=== PATIENT | female | born 1950 | race Caucasian/White ===

== ENCOUNTER 2024-06-12 14:29 | Observation (INO) ==
--- NOTE | 2024-06-12 14:37 | Emergency Department Note ---
HPI - General Adult General Chief complaint: Abdominal Pain Stated complaint: ABDOMINAL PAIN Time Seen by Provider: 06/12/24 14:31 Source: patient and EMS Mode of arrival: ambulance Limitations: no limitations History of Present Illness HPI narrative: This is a 73 year old female patient that presents to the ER with c/o per EMS patient had a syncopal episode in the bathroom today with abdominal pain with N/D. Patient denies any chest pain, back pain,SOB, fever, or chills. Patient denies any vomiting. patient states everything started this morning. Patient was hypotensive upon arrival to ER Onset (ago): hour(s) (3) Location: Reports abdomen Radiation: Reports non-radiation Severity: mild Quality: Reports aching and constant Pain Consistency: Reports constant Relieving factors: Reports none Exacerbating factors: Reports none Associated symptoms: Reports nausea/vomiting (nausea) Treatments prior to arrival: Reports none Related Data Allergies Allergy/AdvReac Type Severity Reaction Status Date / Time No Known Drug Allergies Allergy Verified 06/12/24 14:50 Review of Systems Status of ROS 10 or more systems reviewed and unremark able except as noted in history and below Constitutional Denies: fever, chills, change in weight, fatigue, malaise or night sweats Eyes Denies: change in vision, blurry vision, blind spots, light sensitivity or eye discomfort Ears, nose, mouth, and throat Denies: throat pain, neck pain, throat swelling, difficulty swallowing, hoarseness or mouth pain Cardiovascular Denies: chest pain, palpitations, edema, swelling of feet/ankles, lightheadedness or shortness of breath with exertion Respiratory Denies: shortness of breath, cough, wheezing, stridor, pain on inspiration or change in phlegm color Gastrointestinal Reports: abdominal pain, nausea and diarrhea; Denies: vomiting, coffee grounds in vomit, heartburn or constipation Genitourinary Denies: painful urination, urinary frequency, urinary urgency, urinary incontinence or blood in urine Musculoskeletal Denies: back pain, neck pain, extremity pain, extremity swelling, joint pain, limited range of motion or joint swelling Integumentary/Breast Denies: rash, itching, redness, skin pain, skin tenderness or skin swelling Neurological Reports: other (syncope); Denies: headache, numbness in extremities, weakness in extremities, lack of coordination or dizziness Psychiatric Denies: anxiety, mood swings, panic attacks, change in sleep pattern or hopelessness Endocrine Denies: excessive urination, excessive thirst, fatigue, cold intolerance or excessive sweating Hematologic/Lymphatic Denies: easy bruising, easy bleeding or enlarged lymph nodes Allergic/Immunologic Denies: hives, throat swelling, tongue swelling, facial swelling or wheezing [facility] Medical History Fibrocystic breast Hx of ovarian cancer HTN (hypertension) Surgical History History of oophorectomy Social History Smoking status: never smoker Problems where you live: no known problems Feel stressed/tense/nervous/anxious/difficulty sleeping: only a little Exam Constitutional: normal general appearance and no apparent distress Vital Signs - 24 hr 06/12/24 14:30 06/12/24 15:00 06/12/24 15:30 Temperature 97 F L Pulse Rate 79 91 H 94 H Respiratory Rate 16 18 14 Blood Pressure 81/48 81/49 64/42 Pulse Oximetry 93 L 94 L 95 Oxygen Delivery Me thod Room Air Nasal Cannula Nasal Cannula Oxygen Flow Rate 2 2 06/12/24 15:50 Temperature Pulse Rate 74 Respiratory Rate 14 Blood Pressure 101/57 Pulse Oximetry 95 Oxygen Delivery Me thod Nasal Cannula Oxygen Flow Rate 2 HENMT: normocephalic, head/scalp atraumatic, hearing grossly normal bilaterally, external ears normal, nasal mucous membranes normal, external nose normal, oral mucous membranes normal and oropharynx normal Eyes: PERRL, EOMs intact bilaterally, conjunctivae normal and no scleral icterus Neck/C-Spine: visual inspection normal and trachea midline Lymph: no lymphadenopathy noted Chest: inspection of chest normal Respiratory: breath sounds equal bilaterally, normal respiratory effort, clear to auscultation bilaterally, no wheezes, no rales, no retractions and no use of accessory muscles Cardiovascular: normal heart rate noted, regular rhythm noted, no gallop, no rub, no murmur, no JVD, no clicks and peripheral pulses 2+ throughout Gastrointestinal: abdomen normal to inspection, abdomen soft to palpation, ten ramona to palpation (diffuse tenderness), nontender to percussion, nondistended, normoactive bowel sounds, no hepatosplenomegaly, no masses, no pulsatile mass, no ascites and no hernia Genitourinary: no CVA tenderness Back/Pelvis: spine normal to inspection Extremities: normal to inspection, normal to palpation, no tenderness, full ROM, no joint enlargement and no deformity Neurology: national account executive II-XII intact, no movement abnormality noted, no focal motor deficit noted, no sensory deficits noted, speech normal, coordination normal, no pronator drift noted, no fasciculations noted and GCS normal Psychiatry: mental status grossly normal, oriented x3, thought process normal and cooperative Skin: skin color normal Course Course Hospital Course: 1735: due to syncopal event and ongoing diarrhea and abdominal pain will admit patient to the hospital for further evaluation and treatment. BP improved. CXR: negative Vital Signs Vital signs: Vital Signs Temperature 97 F L 06/12/24 14:30 Pulse Rate 79 06/12/24 14:30 Respiratory Rate 16 06/12/24 14:30 Blood Pressure 81/48 06/12/24 14:30 Pulse Oximetry 93 L 06/12/24 14:30 Oxygen Delivery Method Room Air 06/12/24 14:30 Temperature 97 F L 06/12/24 14:30 Pulse Rate 74 06/12/24 15:50 Respiratory Rate 14 06/12/24 15:50 Blood Pressure 101/57 06/12/24 15:50 Pulse Oximetry 95 06/12/24 15:50 Oxygen Delivery Method Nasal Cannula 06/12/24 15:50 Oxygen Flow Rate 2 06/12/24 15:50 Medical Decision Making Differential Diagnosis Differential Diagnosis: viral illness Medical Records Medical records reviewed: Yes I reviewed the patient's medical records Lab Data Lab results reviewed: Yes I reviewed the patient's lab results Labs: Lab Results 06/12/24 Range/Units 15:15 WBC 15.1 H (4.3-9.3) K/uL RBC 5.6 H (4.00-5.50) M/uL Hgb 16.7 H (12.5-15.8) gm/dL Hct 50.2 H (35.9-46.7) % MCV 88.9 (81.0-93.7) fl MCH 29.6 (27.6-32.2) pg MCHC 33.2 (33.1-35.3) g/dl RDW 14.4 H (11.4-14.2) % Plt Count 297 (152-353) K/uL MPV 7.7 (6.9-10.8) fl Gran % 75.2 H (47.8-71.3) % Lymph % (Auto) 17.0 L (20.0-43.0) % Wright % (Auto) 5.4 (3.6-9.8) % Eos % (Auto) 1.8 (0.4-2.8) % Baso % (Auto) 0.6 (0.1-0.85) Lymph # (Auto) 2.6 (1.1-3.1) Wright # (Auto) 0.8 L (1.1-3.1) Eos # (Auto) 0.3 H (0.0-0.2) Baso # (Auto) 0.1 (0.0-0.1) Absolute Gran (auto) 11.3 H (2.3-6.0) Sodium 137 (136-145) mmol/L Potassium 4.0 (3.6-5.2) mmol/L Chloride 101.0 (98-107) mmol/L Carbon Dioxide 20 L (21-32) mmol/L Anion Gap 16.0 H (4-14) mEq/L BUN 16 (7-18) mg/dL Creatinine 1.2 (0.6-1.3) mg/dL Estimated GFR 47.8 (>59.9) Glucose 139 H (70-110) mg/dL Calcium 9.0 (8.5-10.1) mg/dL Total Bilirubin 0.69 (0.0-1.0) mg/dL AST 28 (15-37) U/L ALT 13 L (30-65) U/L Alkaline Phosphatase 118 (50-136) U/L Troponin I High Sens 10.00 (4.0-60.4) ng/L Total Protein 7.1 (6.4-8.2) g/dL Albumin 3.0 L (3.4-5.0) g/dL Imaging Data CT scan - abdomen: Attestation: I have reviewed the pertinent imaging results. Discharge Plan Discharge Patient Disposition: Admitted As Observation Condition: Stable Chief Complaint: Abdominal Pain Clinical Impression: Acute hypotension, Syncope, Intractable diarrhea, Intractable nausea Print Language: Greek Referrals: Provider,NO PCP [Primary Care Provider] - Time of Disposition: 17:39
[2024-06-12] MEDS: ONDANSETRON HCL/PF 4 MG/2 ML VIAL INJ STA (14:44)
[2024-06-12] MEDS: 0.9 % SODIUM CHLORIDE 1000 ML 1,000 ML IV STA ×2 (14:44→15:45)
[2024-06-12 15:36] LABS: Basophils #(Absolute) Auto 0.1 (0.0-0.1); Basophils%(Percent) Auto 0.6 (0.1-0.85); Eosinophils#(Absolute)Auto 0.3 (0.0-0.2); Eosinophils%(Percent) Auto 1.8 % (0.4-2.8); Granulocytes % - Auto 75.2 % (47.8-71.3); Granulocytes#(Absolute)- Auto 11.3 (2.3-6.0); Hematocrit 50.2 % (35.9-46.7); Mean Corpuscular Volume 88.9 fl (81.0-93.7); Monocytes #(Absolute)- Auto 0.8 (1.1-3.1); Monocytes %(Percent)- Auto 5.4 % (3.6-9.8); Platelet Count 297 K/uL (152-353); White Blood Count 15.1 K/uL (4.3-9.3)
[2024-06-12] MEDS ORDERED: ONDANSETRON HCL/PF 4 MG/2 ML VIAL INJ PRN (18:23)
[2024-06-12] MEDS ORDERED: MAGNESIUM, ALUMINUM HYDROXIDE 30 ML ORAL.SUSP PO PRN (18:23)
[2024-06-12] MEDS ORDERED: ACETAMINOPHEN 500 MG TABLET PO PRN (18:23)
[2024-06-12] MEDS: 0.9 % SODIUM CHLORIDE 1000 ML 1,000 ML IV SCH (18:30)
[2024-06-13 07:31] VITALS: RESP 19
[2024-06-13 10:28] LABS: Basophils%(Percent) Auto 0.1 (0.1-0.85); Eosinophils%(Percent) Auto 0.3 % (0.4-2.8); Granulocytes % - Auto 74.9 % (47.8-71.3); Hematocrit 36.1 % (35.9-46.7); Mean Corpuscular Volume 88.9 fl (81.0-93.7); Monocytes %(Percent)- Auto 8.5 % (3.6-9.8); Platelet Count 285 K/uL (152-353)
[2024-06-13 10:53] LABS: Potassium 3.8 mmol/L (3.6-5.2)
[2024-06-13] MEDS: PANTOPRAZOLE SODIUM 40 MG TABLET.DR PO SCH (11:53)
[2024-06-13] MEDS: PARoxetine HCL 20 MG TABLET PO SCH (11:53)
[2024-06-13 12:03] VITALS: BP 126/50; PULSE 80; TEMP 98.6
[2024-06-13 13:17] LABS: Urine Appearance HAZY (CLEAR); Urine Color DARK YELLOW (STRAW/YELL.)
[2024-06-13 13:18] LABS: Urine Blood 2+ (NEG - TRACE); Urine Urobilinogen Normal (NORMAL)
[2024-06-13] MEDS: LOPERAMIDE HCL 2 MG CAPSULE PO PRN (14:15)
[2024-06-13] MEDS: CEFTRIAXONE SODIUM 1 GM in 0.9 % SODIUM CHLORIDE MB+ 50 ML IV SCH (14:48)
--- NOTE | 2024-06-13 16:32 | Short Stay Summary ---
H&P: HPI History of Present Illness Chief complaint: SYNCOPE,HYPOTENSION,INTRACTABLE DIARRHEA Narrative: This is a 73 year old female patient that presented to the ER with c/o, per EMS, patient had a syncopal episode in the bathroom today with abdominal pain with N/D. Patient denies any chest pain, back pain,SOB, fever, or chills. Patient denies any vomiting. Patient states everything started this morning. Patient was hypotensive upon arrival to ER, 64/42. Patient admitted to med/surg for observation and treatment. Review of Systems Status of ROS 10 or more systems reviewed and unremark able except as noted in history and below Constitutional Denies: fever, chills, change in weight, fatigue, malaise or night sweats Eyes Denies: change in vision, blurry vision, blind spots, light sensitivity or eye discomfort Ears, nose, mouth, and throat Denies: throat pain, neck pain, throat swelling, difficulty swallowing, hoarseness or mouth pain Cardiovascular Denies: chest pain, palpitations, edema, swelling of feet/ankles, lightheadedness or shortness of breath with exertion Respiratory Denies: shortness of breath, cough, wheezing, stridor, pain on inspiration or change in phlegm color Gastrointestinal Reports: abdominal pain, nausea and diarrhea; Denies: vomiting, coffee grounds in vomit, heartburn, constipation or difficulty swallowing Genitourinary Denies: painful urination, urinary frequency, urinary urgency, urinary incontinence or blood in urine Musculoskeletal Denies: back pain, neck pain, extremity pain, extremity swelling, joint pain, limited range of motion or joint swelling Integumentary/Breast Denies: rash, itching, redness, skin pain, skin tenderness or skin swelling Neurological Reports: other (syncope); Denies: headache, numbness in extremities, weakness in extremities, lack of coordination or dizziness Psychiatric Denies: anxiety, mood swings, panic attacks, change in sleep pat tern or hopelessness Endocrine Denies: excessive urination, excessive thirst, fatigue, cold intolerance or excessive sweating Hematologic/Lymphatic Denies: easy bruising, easy bleeding or enlarged lymph nodes Allergic/Immunologic Denies: hives, throat swelling, tongue swelling, facial swelling or wheezing [facility] Medical History (Updated 06/13/24 @ 15:48 by CHATO Manuel) Intermittent diarrhea Syncope and collapse Fibrocystic breast Hx of ovarian cancer HTN (hypertension) Surgical History History of oophorectomy Social History Smoking status: never smoker Problems where you live: no known problems Highest level of school completed/degree received: high school Feel stressed/tense/nervous/anxious/difficulty sleeping: only a little Meds Home Medications and Allergies Home Medications Medication Instructions Recorded Confirmed Type cephalexin 500 mg capsule 500 mg PO TID uti #9 caps 06/13/24 Rx lisinopril 20 mg tablet 20 mg PO DAILY htn #30 tabs 06/13/24 Rx lovastatin 20 mg tablet 20 mg PO .hs 06/13/24 06/13/24 History pantoprazole 40 mg tablet,delayed 40 mg PO DAILY 06/13/24 06/13/24 History release paroxetine HCl 40 mg tablet 40 mg PO DAILY 06/13/24 06/13/24 History Allergies Allergy/AdvReac Type Severity Reaction Status Date / Time No Known Drug Allergies Allergy Verified 06/12/24 14:50 Exam Exam: Patient is very adamant about going home today. Constitutional: abnormal general appearance (chronically ill), no apparent distress, abnormal body habitus (obese), limitations noted (physical limitations) and alert Vital Signs - 24 hr 06/12/24 15:50 06/12/24 16:00 06/12/24 16:30 Temperature Pulse Rate 74 79 80 Pulse Rate [Bilate ral] Respiratory Rate 14 13 14 Blood Pressure 101/57 101/57 106/61 Blood Pressure [Le ft Radial Artery] Pulse Oximetry 95 94 L 96 Oxygen Delivery Me thod Nasal Cannula Room Air Room Air Oxygen Flow Rate 2 06/12/24 17:30 06/12/24 18:01 06/12/24 18:17 Temperature Pulse Rate 76 81 81 Pulse Rate [Bilate ral] Respiratory Rate 16 16 16 Blood Pressure 119/61 112/63 112/63 Blood Pressure [Le ft Radial Artery] Pulse Oximetry 99 92 L 95 Oxygen Delivery Me thod Room Air Room Air Oxygen Flow Rate 06/12/24 19:26 06/12/24 23:32 06/13/24 04:00 Temperature 97.8 F 98.3 F 98.8 F Pulse Rate Pulse Rate [Bilate ral] 82 84 73 Respiratory Rate 16 18 17 Blood Pressure Blood Pressure [Le ft Radial Artery] 127/68 131/61 109/45 Pulse Oximetry 95 94 L 91 L Oxygen Delivery Me thod Room Air Room Air Room Air Oxygen Flow Rate 06/13/24 07:30 06/13/24 07:35 06/13/24 12:00 Temperature 98.1 F 98.1 F 98.6 F Pulse Rate Pulse Rate [Bilate ral] 84 84 80 Respiratory Rate 19 19 19 Blood Pressure Blood Pressure [Le ft Radial Artery] 140/62 140/62 126/50 Pulse Oximetry 96 96 97 Oxygen Delivery Me thod Room Air Room Air Room Air Oxygen Flow Rate HENMT: normocephalic, head/scalp atraumatic, hearing grossly normal bilaterally, external ears normal, nasal mucous membranes normal, external nose normal, oral mucous membranes normal and oropharynx normal Eyes: PERRL, EOMs intact bilaterally, conjunctivae normal and no scleral icterus Neck/C-Spine: visual inspection normal and trachea midline Lymph: no lymphadenopathy noted Chest: inspection of chest normal Respiratory: breath sounds equal bilaterally, normal respiratory effort, clear to auscultation bilaterally, no wheezes, no rales, no retractions and no use of accessory muscles Cardiovascular: normal heart rate noted, regular rhythm noted, no gallop, no rub, no murmur, no JVD, no clicks and peripheral pulses 2+ throughout Gastrointestinal: abdomen normal to inspection, abdomen soft to palpation, tender to palpation (diffuse tenderness), nontender to percussion, nondistended, normoactive bowel sounds, no hepatosplenomegaly, no masses, no pulsatile mass, no ascites and no hernia Genitourinary: no CVA tenderness Back/Pelvis: spine normal to inspection Extremities: normal to inspection, normal to palpation, no tenderness, full ROM, no joint enlargement and no deformity 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, no movement abnormality noted, no focal motor deficit noted, no sensory deficits noted, speech normal, coordination normal, no pronator drift noted, no fasciculations noted and GCS normal Psychiatry: mental status grossly normal, oriented x3, thought process normal and cooperative Skin: skin color normal Assessment and Plan Assessment and Plan (1) Syncope and collapse: Code(s): R55 - Syncope and collapse (2) HTN (hypertension): Qualifiers: Hypertension type: primary hypertension Qualified Code(s): I10 - Essential (primary) hypertension Code(s): I10 - Essential (primary) hypertension (3) Thrombocytosis: Code(s): D75.839 - Thrombocytosis, unspecified (4) UTI (urinary tract infection): Qualifiers: Urinary tract infection type: site unspecified Hematuria presence: with hematuria Qualified Code(s): N39.0 - Urinary tract infection, site not specified; R31.9 - Hematuria, unspecified Code(s): N39.0 - Urinary tract infection, site not specified (5) Intermittent diarrhea: Code(s): R19.7 - Diarrhea, unspecified (6) Dehydration: Code(s): E86.0 - Dehydration (7) Frequent falls: Code(s): R29.6 - Repeated falls Plan Sodium Chloride 1,000 mls @ 150 mls/hr IV CONT Pantoprazole Sodium 40 mg PO DAILY Paroxetine Hcl 40 mg PO DAILY Ceftriaxone Sodium 1 gm in Sodium Chloride 50 mls @ 100 mls/hr IV Q12H Acetaminophen 500 mg PO Q6H PRN Magnesium Hydroxide 30 ml PO DAILY PRN Ondansetron Hcl 4 mg INJ Q6H PRN Loperamide Hcl 2 mg PO Q6H PRN Provider and Physical Therapy recommend short term in-patient physical therapy, patient declines at this time. Patient is signing AMA form accepting acknowledgement of risk. Results Labs Labs: CBC WBC 12.0 K/uL (4.3-9.3) H 06/13/24 10:20 RBC 4.1 M/uL (4.00-5.50) 06/13/24 10:20 Hgb 11.9 gm/dL (12.5-15.8) L 06/13/24 10:20 Hct 36.1 % (35.9-46.7) 06/13/24 10:20 MCV 88.9 fl (81.0-93.7) 06/13/24 10:20 MCH 29.2 pg (27.6-32.2) 06/13/24 10:20 MCHC 32.8 g/dl (33.1-35.3) L 06/13/24 10:20 RDW 14.2 % (11.4-14.2) 06/13/24 10:20 Plt Count 285 K/uL (152-353) 06/13/24 10:20 MPV 7.3 fl (6.9-10.8) 06/13/24 10:20 Gran % 74.9 % (47.8-71.3) H 06/13/24 10:20 Lymph % (Auto) 16.2 % (20.0-43.0) L 06/13/24 10:20 [place] % (Auto) 8.5 % (3.6-9.8) 06/13/24 10:20 Eos % (Auto) 0.3 % (0.4-2.8) L 06/13/24 10:20 Baso % (Auto) 0.1 (0.1-0.85) 06/13/24 10:20 Lymph # (Auto) 1.9 (1.1-3.1) 06/13/24 10:20 [place] # (Auto) 1.0 (1.1-3.1) L 06/13/24 10:20 Eos # (Auto) 0.0 (0.0-0.2) 06/13/24 10:20 Baso # (Auto) 0.0 (0.0-0.1) 06/13/24 10:20 Absolute Gran (auto) 9.0 (2.3-6.0) H 06/13/24 10:20 BMP Sodium 143 mmol/L (136-145) 06/13/24 10:30 Potassium 3.8 mmol/L (3.6-5.2) 06/13/24 10:30 Chloride 109.0 mmol/L (98-107) H 06/13/24 10:30 Carbon Dioxide 24 mmol/L (21-32) 06/13/24 10:30 Anion Gap 10.0 mEq/L (4-14) 06/13/24 10:30 BUN 16 mg/dL (7-18) 06/13/24 10:30 Creatinine 1.0 mg/dL (0.6-1.3) 06/13/24 10:30 Estimated GFR 59.5 (>59.9) 06/13/24 10:30 Glucose 97 mg/dL (70-110) 06/13/24 10:30 Calcium 8.0 mg/dL (8.5-10.1) L 06/13/24 10:30 Phosphorus 2.3 mg/dL (2.5-4.9) L 06/13/24 10:30 Magnesium 2.0 mg/dL (1.8-2.4) 06/13/24 10:30 Total Bilirubin 0.24 mg/dL (0.0-1.0) 06/13/24 10:30 AST 18 U/L (15-37) 06/13/24 10:30 ALT 16 U/L (30-65) L 06/13/24 10:30 Alkaline Phosphatase 78 U/L (50-136) 06/13/24 10:30 Total Protein 5.7 g/dL (6.4-8.2) L 06/13/24 10:30 Albumin 2.5 g/dL (3.4-5.0) L 06/13/24 10:30 Cardiac Enzymes Troponin I High Sens 10.00 ng/L (4.0-60.4) 06/12/24 15:15 Liver Function Total Bilirubin 0.24 mg/dL (0.0-1.0) 06/13/24 10:30 AST 18 U/L (15-37) 06/13/24 10:30 ALT 16 U/L (30-65) L 06/13/24 10:30 Alkaline Phosphatase 78 U/L (50-136) 06/13/24 10:30 Total Protein 5.7 g/dL (6.4-8.2) L 06/13/24 10:30 Albumin 2.5 g/dL (3.4-5.0) L 06/13/24 10:30 Urine Urine Color Dark yellow (STRAW/YELL.) 06/13/24 12:35 Urine Appearance Hazy (CLEAR) 06/13/24 12:35 Ur Specific [place] 1.020 (1.001-1.035) 06/13/24 12:35 Urine Protein Negative (NEGATIVE) 06/13/24 12:35 Urine Glucose (UA) Normal (NORMAL) 06/13/24 12:35 Urine Ketones Negative (NEGATIVE) 06/13/24 12:35 Urine Occult Blood 2+ (NEG - TRACE) 06/13/24 12:35 Urine Nitrite Negative (NEGATIVE) 06/13/24 12:35 Urine Bilirubin Negative (NEGATIVE) 06/13/24 12:35 Urine Urobilinogen Normal (NORMAL) 06/13/24 12:35 Ur Leukocyte Esterase Positive (NEGATIVE) 06/13/24 12:35 Imaging Imaging ordered: Chest x-ray, CT scan - abdomen, CT scan - head and other (Hip/Pelvis X-Ray; Ribs X-Ray) Radiologist's impression: Portable chest Date of Service: 06/12/24 HISTORY: Chest pain COMPARISON: 11/10/2023 FINDINGS: Heart size is normal. Edith are normal. Lungs are well inflated. There is a small infiltrate present in the retrocardiac area of the left lower lobe possibly early pneumonia. Follow-up of this area is recommended. No pleural effusions identified. Bony thorax is unremarkable. IMPRESSION: Small infiltrate retrocardiac area left lower lobe possibly developing pneumonia. Attention to this area on follow-up recommended. CT ABDOMEN PELVIS W CON Date of Service: 06/12/24 HISTORY: Abdominal pain; COMPARISON: 08/18/2021. TECHNIQUE: Following the intravenous administration of iodinated contrast, spiral CT imaging was performed through the abdomen and pelvis and axial, coronal, and sagittal CT images were generated. FINDINGS: Mild basilar atelectasis without effusion. Heart size is normal. There is atherosclerosis in the LAD. Ascending aorta measures 3.6 cm in diameter. There is a moderate hiatal hernia. The stomach is otherwise unremarkable. The liver is normal. The gallbladder has been removed. Pancreas, spleen, adrenal glands are normal. The kidneys are normal in size and enhancement without mass, stone, or hydronephrosis. Urinary bladder is normal. The uterus has been removed. There is no adnexal mass. There is no abnormal dilation of the small bowel. The appendix is not identified. There are air-fluid levels in the large bowel. There is non-specific wall thickening in the distal colon. There is a midline ventral hernia closer to the pubic bone than the umbilicus. There is a small collection of fluid near the hernia measuring 2.5 x 6.3 x 4.0 cm. There is degeneration of the spine and in the hips but there is no worrisome bone marrow lesion. There is [id number] spinal stenosis at L4-L5. IMPRESSION: 1. Moderate hiatal hernia. 2. Non-specific wall thickening in the distal colon. 3. Midline ventral hernia caudal to the umbilicus. Associated small fluid collection near the hernia. CT HEAD/BRAIN WO CON Date of Service: 06/12/24 HISTORY: Syncope COMPARISON: August 18, 2021 TECHNIQUE: Axial non-contrast images of the head were obtained with coronal and sagittal reformats provided. Radiation dose: 1156.6 mGy-cm total DLP FINDINGS: No abnormal areas of acute attenuation in the brain parenchyma. Tiny old lacunar infarct in the right thalamus. [place]-white differentiation remains intact. No intracranial, extra-axial, fluid collection. No hemorrhage. Periventricular chronic microvascular disease. No mass, mass effect or midline shift. Age related brain parenchymal global atrophy. No ventriculomegaly. No acute fracture. Sinuses are well aerated. Mastoid air cells are well aerated. Globes and intra-orbital contents are unremarkable. IMPRESSION: No acute intracranial abnormality identified. XR HIP BI W PEL1V Date of Service: 06/13/24 HISTORY: fall with hip and pelvis painfall with hip and pelvis pain; COMPARISON: None. TECHNIQUE: AP pelvis, frogleg lateral hip FINDINGS: No visible fracture or dislocation. Hip joint spaces appear preserved and symmetric. Sacroiliac joints appear patent. No significant degenerative changes. IMPRESSION: No acute appearing finding. XR RIBS RT MIN 3V W CXR1V Date of Service: 06/13/24 HISTORY: fall with hip and pelvis pain, right rib pain; COMPARISON: None. FINDINGS: There is right lateral 6th rib fracture with mild adjacent pleural thickening. No focal consolidation is seen. The heart size is within normal limits The mediastinum is unremarkable. There is no evidence of pleural effusion or gross pneumothorax. Trachea is midline. IMPRESSION: 1. NO FOCAL CONSOLIDATION IS SEEN. 2. Right lateral 6th rib fracture. DS: Providers Provider Date of admission: 06/12/24 17:45 Primary care physician: NO PCP Provider Admitting clinician: Samantha Jackman Attending physician on admission: Pina Montero Consults: 06/13/24 09:54 Consult to Occupational Therapy Routine Comment: Consulting Provider: Reason for consultation: syncope, dizziness trouble walking Physician Instructions: evaluate and treat Consult to Physical Therapy Routine Comment: Consulting Provider: Reason for consultation: syncope, dizziness trouble walking Physician Instructions: evaluate and treat Attending physician on discharge: Pina Montero Discharging clinician: Pina Montero Anticipated date of discharge: 06/13/24 DS: Summary Hospital Course Hospital Course: This is a 73 year old female patient that presented to the ER with c/o, per EMS, patient had a syncopal episode in the bathroom today with abdominal pain with N/D. Patient denies any chest pain, back pain, SOB, fever, or chills. Patient denies any vomiting. Patient states everything started this morning. Patient was hypotensive upon arrival to ER, 64/42. Patient admitted to med/surg for observation and treatment. Day 1 of hospital stay, patient hypotension has resolved, not experiencing anymore nausea, or syncopal episodes. Mrs. Wayne states diarrhea is a baseline for her ever since receiving radiation. Patient disclosed she had a fall a couple days ago and bruised her right hip and side; X-Rays of Ribs & Hip/Pelvis were performed today. Hip/Pelvis X-Ray Findings: No visible fracture or dislocation. Hip joint spaces appear preserved and symmetric. Sacroiliac joints appear patent. No significant degenerative changes. Impression: No acute appearing finding. Ribs X-Ray Findings: There is right lateral 6th rib fracture with mild adjacent pleural thickening. No focal consolidation is seen. The heart size is within normal limits. The mediastinum is unremarkable. There is no evidence of pleural effusion or gross pneumothorax. Trachea is midline. Impression: 1: No focal consolidation is seen. 2: Right lateral 6th rib fracture. Physical therapy and provider recommend patient be admitted to an in-patient short term rehabilitation facility for frequent falls and syncopal episodes. Patient declines short term rehab at this time, insisting on going home to her recliner. Patient signed an AMA form for declining care and recommendations, and understanding the risk of fall, debility, and risk of . Patient is to follow up with PCP in 5-7 days of discharge. Patient is to follow up with GI Specialist, Cardiology, and Neurology as soon as possible. Provider recommends IOP for patient, due to depression. Status at Discharge Functional status at discharge: uses cane/walker Overall status at discharge: patient is back to baseline Time Spent with Patient Time attestation: Total time spent providing and/or coordinating discharge services: Time spent: greater than 30 minutes Discharge Plan Discharge Disposition: Home, Self-Care Condition: Improved Discharge Medications: New cephalexin 500 mg capsule 500 mg PO TID Qty: 9 0RF lisinopril 20 mg tablet 20 mg PO DAILY Qty: 30 0RF Continued lovastatin 20 mg tablet 20 mg PO .hs Patient Comments: TAKE ONE TABLET BY MOUTH DAILY WITH EVENING MEAL pantoprazole 40 mg tablet,delayed release (DR/EC) 40 mg PO DAILY Patient Comments: TAKE ONE TABLET BY MOUTH DAILY paroxetine HCl 40 mg tablet 40 mg PO DAILY Patient Comments: TAKE ONE TABLET BY MOUTH DAILY IN THE MORNING Discontinued lisinopril-hydrochlorothiazide 20-25 mg tablet 1 tab PO DAILY Patient Comments: TAKE ONE TABLET BY MOUTH DAILY Discharge Orders: Discharge Order (Routine); Ordered 06/13/24 Ordered By: Pina Montero Activity: as per physical therapy Diet: advance to your usual diet Interventions: MED/SURG & ICU Observation Charge Sheet Last Done: 06/13/24 04:24 Patient Instructions: Dehydration (DC), Syncope (DC), Fall Prevention for Older Adults (DC), Acute Diarrhea (GEN), Chronic Hypertension (GEN), Fall Prevention (DC), Urinary Tract Infection in Older Adults (DC) Activity Restrictions/Additional Instructions: patient refused to do inpatient rehab as recommended by myself and physical therapy even with education on risk for falls, debility and increase water intake and avoid her water pill of hydrochlorothiazide use walker as educated by home health care and physical therapy sister is coming up from [place] and is gonna move in with the patient GI follow up as well as cardiology and Neurology follow-up consider IOP for the patient and depression since she is crying alot. Forms: Portal/Health Info Access Inst Follow-Ups: Provider,NO PCP [Primary Care Provider] -
== END 2024-06-13 16:18 | disposition home or self-care (01) ==
LOC: ED 14:29 → MS 14:29
PROVIDERS: ADMIT Family Medicine; ATTEND Family Medicine
DX: R55 Syncope and collapse; R10.9 Unspecified abdominal pain; R11.0 Nausea; N39.0 Urinary tract infection, site not specified; R07.89 Other chest pain; E55.9 Vitamin D deficiency, unspecified; R31.9 Hematuria, unspecified; D75.839 Thrombocytosis, unspecified; E86.0 Dehydration; I10 Essential (primary) hypertension; R10.2 Pelvic and perineal pain; M25.559 Pain in unspecified hip; R29.6 Repeated falls; R07.81 Pleurodynia; R19.7 Diarrhea, unspecified